=== PATIENT | male | born 1960 | race Hispanic/Latino ===

== ENCOUNTER 2021-05-11 19:56 | Emergency (ER) | payer SELFPAY ==
[2021-05-11] MEDS ORDERED: ASPIRIN 325 MG TAB PO ONE (20:22)
[2021-05-11 20:39] LABS: Basophils % (Auto) 0.2 % (0.0-1.8); Eosinophils % (Auto) 0.1 % (0.0-4.3); Hematocrit 41.5 % (35.5-45.6); Hemoglobin 14.1 gm/dl (11.8-15.2); Lymphocytes # (Auto) 0.6 K/mm3 (1.2-5.4); Lymphocytes % (Auto) 8.2 % (13.4-35.0); Mean Corpuscular HGB Conc 34 % (32-34); Mean Corpuscular Volume 89 fl (84-94); Monocytes # (Auto) 0.7 K/mm3 (0.0-0.8); Monocytes % (Auto) 9.1 % (0.0-7.3); Platelet Count 234 K/mm3 (140-440); Red Blood Count 4.67 M/mm3 (3.65-5.03); Red Cell Distribution Width 13.8 % (13.2-15.2)
[2021-05-11 21:03] LABS: Alanine Aminotransferase 24 units/L (7-56); Albumin 3.8 g/dL (3.9-5); BUN/Creatinine Ratio 8; Blood Urea Nitrogen 9 mg/dL (9-20); Calcium 8.1 mg/dL (8.4-10.2); Hemolysis Index 4
--- NOTE | 2021-05-11 21:31 | XRay Report ---
CHEST 2 VIEWS INDICATION / CLINICAL INFORMATION: Chest pain. COMPARISON: None available. FINDINGS: SUPPORT DEVICES: None. HEART / MEDIASTINUM: The heart size and pulmonary vasculature are normal. The aorta is normal in sudhir pratik. LUNGS / PLEURA: No significant pulmonary or pleural abnormality. No pneumothorax. ADDITIONAL FINDINGS: No significant additional findings. IMPRESSION: No acute findings. Signer Name: Dinh Ahn MD Signed: 05/11/2021 9:27 PM Workstation Name: [id number]
[2021-05-12 04:08] LABS: Bilirubin,Urine NEG (Negative); Blood,Urine SM (Negative); Color,Urine Yellow (Yellow); Mucus,Urine FEW /HPF
[2021-05-12] MEDS ORDERED: HYDROcodone/ACETAMINOPHEN 5-325 MG TAB PO ONE (04:08)
--- NOTE | 2021-05-12 04:16 | Emergency Department Report ---
HPI - General Chief Complaint: Chest Pain Time Seen by Provider: 05/12/21 03:39 - HPI HPI: Room 3 The patient is a 61-year-old male present with a chief complaint of body aches, chills and shortness of breath. Patient states symptoms began 2 to 3 days ago when he had difficulty urinating. Patient states he has since been able to urinate since he has been in this ED. Patient states his other symptoms included dyspnea on exertion, diffuse body aches/myalgias and occasional cough that is been nonproductive. Patient states he has had a subjective fever. Last week the patient states he had multiple deer ticks over his lower extremities but he was able to remove them. Patient states he had nausea vomiting for the past 2 days but denies diarrhea. ED Past Medical Hx - Past Medical History Previous Medical History?: Yes Hx Renal Disease: Yes Hx of Cancer: Yes (Prostate-no treatment) Additional medical history: Hernia, Brights disease - Surgical History Past Surgical History?: No - Family History Family history: no significant - Social History Smoking Status: Never Smoker Substance Use Type: None (Denies illicit drug use), Alcohol (Rarely) - Medications Home Medications: Home Medications Medication Instructions Recorded Confirmed Last Taken Type Cyclobenzaprine [Flexeril] 10 mg PO TID PRN #14 tablet 12/09/15 Unknown Rx HYDROcodone/APAP 5-325 [[place] 1 each PO Q6HR PRN #14 tablet 12/09/15 Unknown Rx 5/325] Ibuprofen [Motrin 800 MG tab] 800 mg PO Q8HR PRN #20 tablet 12/09/15 Unknown Rx Albuterol Mdi (or & Nicu Only) 2 puff IH QID PRN #8.5 gram 05/12/21 Unknown Rx [ProAir HFA Inhaler] Amoxicillin [Amoxicillin TAB] 875 mg PO BID #14 tablet 05/12/21 Unknown Rx HYDROcodone/APAP 5-325 [[place] 1 - 2 each PO Q6HR PRN #10 tablet 05/12/21 Unknown Rx 5/325] Ibuprofen [Motrin 800 MG tab] 800 mg PO Q8HR PRN #20 tablet 05/12/21 Unknown Rx ED Review of Systems ROS: Stated complaint: CHEST PAIN Other details as noted in HPI Constitutional: chills, fever (Subjective) Eyes: denies: eye pain ENT: denies: throat pain Respiratory: SOB with exertion Cardiovascular: denies: chest pain Endocrine: no symptoms reported Gastrointestinal: nausea, vomiting. denies: abdominal pain Genitourinary: other (Difficulty urinating) Neurological: denies: headache Physical Exam - Physical Exam Vital Signs: Vital Signs 05/11/21 20:11 Temperature 99.4 F Pulse Rate 104 H Respiratory 19 Rate Blood Pressure 182/97 O2 Sat by Pulse 96 Oximetry Physical Exam: GENERAL: The patient is well-developed well-nourished male lying on stretcher not appearing to be in acute distress. [] HEENT: Normocephalic. Atraumatic. Extraocular motions are intact. Patient has moist mucous membranes. NECK: Supple. Trachea midline CHEST/LUNGS: Clear to auscultation. There is no respiratory distress noted. HEART/CARDIOVASCULAR: Regular. There is no tachycardia. There is no gallop rub or murmur. ABDOMEN: Abdomen is soft, nontender. Patient has normal bowel sounds. There is no abdominal distention. SKIN: There were several regions of subacute insect bites visualized on bilateral lower extremities. No rickettsial rashes appreciated. NEURO: The patient is awake, alert, and oriented. The patient is cooperative. The patient has no focal neurologic deficits. The patient has normal speech and gait. MUSCULOSKELETAL: There is no evidence of acute injury. ED Course Vital Signs 05/11/21 20:11 Temperature 99.4 F Pulse Rate 104 H Respiratory 19 Rate Blood Pressure 182/97 O2 Sat by Pulse 96 Oximetry - Reevaluation(s) Reevaluation #1: 05/12/21 04:54 The patient's 2-minute walking SPO2 did not drop below 94% on room air ED Medical Decision Making - Lab Data Result diagrams: 05/11/21 20:28 05/11/21 20:28 Laboratory Tests 05/11/21 05/11/21 05/11/21 20:28 20:28 23:53 WBC 7.3 RBC 4.67 Hgb 14.1 Hct 41.5 MCV 89 MCH 30 MCHC 34 RDW 13.8 Plt Count 234 Lymph % (Auto) 8.2 L Foard % (Auto) 9.1 H Eos % (Auto) 0.1 Baso % (Auto) 0.2 Lymph # (Auto) 0.6 L Foard # (Auto) 0.7 Eos # (Auto) 0.0 Baso # (Auto) 0.0 Seg Neutrophils % 82.4 H Seg Neutrophils # 6.1 Sodium 130 L Potassium 4.0 Chloride 93.3 L Carbon Dioxide 27 Anion Gap 14 BUN 9 Creatinine 1.1 Estimated GFR > 60 BUN/Creatinine Ratio 8 Glucose 106 H Calcium 8.1 L Total Bilirubin 0.40 AST 24 ALT 24 Alkaline Phosphatase 98 Troponin T < 0.010 < 0.010 NT-Pro-B Natriuret Pep Total Protein 7.1 Albumin 3.8 L Albumin/Globulin Ratio 1.2 Urine Color Urine Turbidity Urine pH Ur Specific Irene Urine Protein Urine Glucose (UA) Urine Ketones Urine Blood Urine Nitrite Urine Bilirubin Urine Urobilinogen Ur Leukocyte Esterase Urine WBC (Auto) Urine RBC (Auto) U Epithel Cells (Auto) Urine Mucus 05/12/21 05/12/21 05/12/21 02:21 02:21 03:47 WBC RBC Hgb Hct MCV MCH MCHC RDW Plt Count Lymph % (Auto) Foard % (Auto) Eos % (Auto) Baso % (Auto) Lymph # (Auto) Foard # (Auto) Eos # (Auto) Baso # (Auto) Seg Neutrophils % Seg Neutrophils # Sodium Potassium Chloride Carbon Dioxide Anion Gap BUN Creatinine Estimated GFR BUN/Creatinine Ratio Glucose Calcium Total Bilirubin AST ALT Alkaline Phosphatase Troponin T < 0.010 NT-Pro-B Natriuret Pep 437.7 Total Protein Albumin Albumin/Globulin Ratio Urine Color Yellow Urine Turbidity Hazy Urine pH 6.0 Ur Specific Irene 1.020 Urine Protein 100 mg/dl Urine Glucose (UA) Neg Urine Ketones Neg Urine Blood Sm Urine Nitrite Neg Urine Bilirubin Neg Urine Urobilinogen 2.0 Ur Leukocyte Esterase Neg Urine WBC (Auto) 2.0 Urine RBC (Auto) 13.0 U Epithel Cells (Auto) < 1.0 Urine Mucus Few - EKG Data -: EKG Interpreted by Me EKG shows normal: sinus rhythm Rate: normal - EKG Data When compared to previous EKG there are: previous EKG unavailable Interpretation: LVH - Radiology Data Radiology results: report reviewed (Chest x-ray), image reviewed (Chest x-ray) interpreted by me: Chest x-ray-no definite focal infiltrates, no pneumothorax. No foreign body seen [facility] [address] [place] [address] XRay Report Signed Patient: DEB MARION MR#: [id number] 3 : 1960 Acct:[id number] Age/Sex: 61 / M ADM Date: 05/11/21 Loc: ED Attending Dr: Ordering Physician: ARDEN PARSONS MD Date of Service: 05/11/21 Procedure(s): XR chest routine 2V Accession Number(s): [id number] cc: ARDEN PARSONS MD Fluoro Time In Minutes: CHEST 2 VIEWS INDICATION / CLINICAL INFORMATION: Chest pain. COMPARISON: None available. FINDINGS: SUPPORT DEVICES: None. HEART / MEDIASTINUM: The heart size and pulmonary vasculature are normal. The aorta is normal in caliber. LUNGS / PLEURA: No significant pulmonary or pleural abnormality. No pneumothorax. ADDITIONAL FINDINGS: No significant additional findings. IMPRESSION: No acute findings. Signer Name: Dinh Ahn MD Signed: 05/11/2021 9:27 PM Workstation Name: [id number] Transcribed By: RT Dictated By: Dinh Ahn MD Electronically Authenticated By: Dinh Ahn MD Signed Date/Time: 05/11/212126 DD/ 25 TD/TT: Print Cancel - Differential Diagnosis Bronchitis, pneumonia, COVID-19, tickborne illness, Critical care attestation.: If time is entered above; I have spent that time in minutes in the direct care of this critically ill patient, excluding procedure time. ED Disposition Clinical Impression: Acute bronchitis, Myalgia Disposition: DC-01 TO HOME OR SELFCARE Is pt being admited?: No Does the pt Need Aspirin: No Condition: Stable Instructions: Acute Bronchitis (ED), Acute Bronchitis, Adult, [id number], Musculoskeletal Pain Additional Instructions: Return to the emergency department should you develop worsening symptoms, inability to tolerate food or liquids, high fever or any other concerns Prescriptions: Amoxicillin [Amoxicillin TAB] 875 mg PO BID #14 tablet Ibuprofen [Motrin 800 MG tab] 800 mg PO Q8HR PRN #20 tablet PRN Reason: Pain, Moderate (4-6) HYDROcodone/APAP 5-325 [[place] 5/325] 1 - 2 each PO Q6HR PRN #10 tablet PRN Reason: Pain Albuterol Mdi (or & Nicu Only) [ProAir HFA Inhaler] 2 puff IH QID PRN #8.5 gram PRN Reason: Shortness Of Breath Referrals: [facility]HER [place] MD EUGENIA [Primary Care Provider] - 3-5 Days Time of Disposition: 04:54
[2021-05-12 05:18] VITALS: BP 178/90
--- NOTE | 2021-05-18 11:09 | Electrocardiograph Report ---
[facility] Test Date: 2021-05-11 Test Time: 20:06:35 Pat Name: DEB MARION Department: Room: Gender: M [employer]: : 1960 Requested By: RAGHAVENDRA CUENCA Order Number: [id number] Reading MD: Bam Harvey Measurements Intervals [place] Rate: 97 P: 29 VT: 128 QRS: 8 QRSD: 102 T: 62 QT: 366 QTc: 465 Interpretive Statements Sinus rhythm Probable left ventricular hypertrophy No previous ECG available for comparison Electronically Signed On 05-18-2021 11:09:29 EDT by Bam Harvey
== END 2021-05-12 05:18 | disposition home or self-care (01) ==
LOC: ED 19:56
DX: J20.9 Acute bronchitis, unspecified (principal); M79.18 Myalgia, other site; R30.0 Dysuria; Z98.890 Other specified postprocedural states
CPT/HCPCS: 36415; 71046; 80053; 81001; 83880; 84484; 85025; 93005; 99284